=== PATIENT | female | born 1935 | race Caucasian/White ===

== ENCOUNTER 2016-07-12 22:23 | Inpatient (IN) | payer MEDICARE, BC ==
[~2016-07-12] VITALS: Ht 162.6 cm; Wt 116.1 kg
--- NOTE | ~2016-07-12 | ECH ---
Transthoracic Echocardiography Report (TTE) Demographics Patient Name EMMETT MURILLO Date of Study 07/15/2016 Patient Number [id number] Visit Number [id number] Date of 1935 Room Number 416 Accession Number [id number] Gender Female Age 80 year(s) Referring Raphael Figueroa Operations Consultant Drea Vargas [facility] Physician Physician Interpreting Maddy Tate [employer] Store Manager Physician Supervising Ordering Physician Gia Morel MD, MD/P Nurse Stress Photo Cartographer Conclusions Contractility Score Summary Normal Left Ventricular contractility was noted. Summary Technically adequate exam. The estimated left ventricular ejection fraction is 60%. Mild concentric left ventricular hypertrophy. Mildly dilated right ventricle with normal function. The left atrium is severely dilated by LA volume index measurement. Patient has known PFO by previous NEO bubble study. The right atrium is moderately dilated. Mild mitral regurgitation by color Doppler. Mild tricuspid regurgitation by color Doppler. There is mild pulmonary hypertension. The pulmonary pressure (RVSP) is 47 mmHg. The ascending aorta appears mildly dilated. The maximum diameter measures 3.6 cm. Recommendation The patient will be given the results of this study by the physician who ordered the exam. Procedure Type of Study TTE procedure:Echo Complete SF. Procedure Date Date: 07/15/2016 Start: 07:48 AM Technical Quality: Adequate visualization Indications:Atrial fibrillation and Hypertension. Additional Indications:Mental status changes Appropriate Use Criteria: 9 Height: 64 inches Weight: 252 pounds BSA: 2.16 m Rhythm: Within normal limits HR: 61 bpm BP: 152/81 mmHg M-Mode/2D Measurements LV Diastolic Dimension: 5.26 cm LV Systolic Dimension: 3.27 cm LV Septum Diastolic: 1.09 cm LV PW Diastolic: 1.09 cm AO Root Dimension: 3 cm Cardiac Output: 5.36 l/min LA Dimension: 4.43 cm Cardiac Index: 2.48 l/min*m RV Diastolic Dimension: 3.85 cm LA volume index: 51 ml/m LVOT: 1.99 cm LVOT VTI: 28.27 cm RV Base: 4.6 cm LV Stroke volume: 87.88 ml RV Mid: 3.1 cm LV Stroke volume index: 40.69 ml/m TAPSE: 3.1 cm TDI-S': 16 cm/s Doppler Measurements AV Peak Velocity: 1.7 m/s MV Peak E-Wave: 1.05 m/s AV Peak Gradient: 11.56 mmHg MV Peak A-Wave: 0.53 m/s AV Mean Gradient: 6.33 mmHg MV E/A Ratio: 1.96 LVOT Peak Velocity: 1.26 m/s MV P1/2t: 51.1 msec AV Area (Continuity):2.44 cm MV Deceleration Time: 165.8 msec TR Velocity:3.24 m/s MV Area (PHT): 4.31 cm TR Gradient:41.96 mmHg PV Peak Velocity: 0.93 m/s Estimated RAP:5 mmHg PV Peak Gradient: 3.45 mmHg Estimated RVSP: 47 mmHg Estimated PASP: 46.96 mmHg E' Septal Velocity: 0.11 m/s A' Septal Velocity: 0.05 m/s E' Lateral Velocity: 0.13 m/s A' Lateral Velocity: 0.06 m/s RA Area: 25.43 cm Findings Left Ventricle The left ventricle is normal in size . Mild concentric left ventricular hypertrophy. Diastolic assessment reveals normal relaxation. Right Ventricle Mildly dilated right ventricle with normal function. Left Atrium The left atrium is severely dilated by LA volume index measurement. Patient has known PFO by previous NEO bubble study. Right Atrium The right atrium is moderately dilated. Mitral Valve Mild mitral annular calcification. Mild mitral regurgitation by color Doppler. Aortic Valve The aortic valve is mildly sclerotic. Tricuspid Valve Normal tricuspid valve structure and function. Mild tricuspid regurgitation by color Doppler. There is mild pulmonary hypertension. The pulmonary pressure (RVSP) is 47 mmHg. Pulmonic Valve The pulmonic valve is not well visualized. Trivial pulmonic valve regurgitation by color Doppler. Pericardial Effusion No evidence of pericardial effusion. Miscellaneous The ascending aorta appears mildly dilated. The maximum diameter measures 3.6 cm. Pleural Effusion No evidence of pleural effusion. Contractility Score LV regional wall motion:(0-Non visualized 1-Normal 2-Hypokinesis 3-Akinesis 4-Dyskinesis 5-Aneurysm) Signature
[~2016-07-12 22:23] MED LIST: AMBIEN DPS5 MG PO; AMBIEN10 MG PO; ARIMIDEX DPS1 MG PO; BETAPACE120 MG PO; CALTRATE-600 D600 MG PO; CARDIZEM CD DP120 MG PO; CATAPRES-DPS0.1 MG PO; CATAPRES0.1 MG PO; COUMADIN2.5 MG PO; COUMADIN3 MG PO; CYMBALTA30 MG PO; DAILY MULTIPLE1 EAC1 PO; FEOSOL325 MG PO; LASIX20 MG PO; LORTAB 10-3251 EACH PO; MAVIK2 MG PO; METOPROLOL TART25 MG PO; MIRALAX17 GM PO; NEURONTIN300 MG PO; NOLVADEX DPS20 MG PO; TAMBOCOR100 MG PO; TOPAMAX DPS25 MG PO; TYLENOL325 MG PO; VITAMIN C250 MG PO; VITAMIN D50000 UNIT PO; WELLBUTRIN75 MG PO; ZANTAC DPS150 MG PO; ZYLOPRIM-DPS100 MG PO; ZYLOPRIM300 MG PO
--- NOTE | 2016-07-13 05:25 | ER ---
ADMIT: 07/12/2016 RM/LOC: ER [facility] MR#: [id number] [address] [facility] [address] [place], [place] [address] EMMETT MURILLO S [address] [place] [address] Emergency Room Report SEX: F AGE: 80 : 1935 DATE: 07/12/2016 CHIEF COMPLAINT: Delirium. HISTORY OF PRESENT ILLNESS: The patient is a 80-year-old female from [place], transferred by volunteer squad after witnessed a fall tonight. The patient denies fall or confusion, though it is apparent the patient is delirious and confused, unable to answer date, time of year, or specifics of her past medical history. The patient specifically denies any headache, fevers, chills, cough, nausea, vomiting, diarrhea, or urinary symptoms. PAST MEDICAL HISTORY: ALLERGIES: NEXIUM, FOSAMAX, NITROGLYCERIN, ISOSORBIDE. MEDICATIONS: Please see nurse's MAR. ILLNESSES: Atrial fib, anticoagulated, breast cancer, hypertension, obstructive sleep apnea, CPAP, DVT, gout, depression, migraines. OPERATIONS: Normal left heart cath x2, most recently in 2011, left total knee arthroplasty, bilateral carpal tunnel release, left breast biopsy, lumbar laminectomy with cage L4-L5. SOCIAL HISTORY: Nonsmoker, nondrinker, no illicit drugs. FAMILY HISTORY: Negative per chart review. REVIEW OF SYSTEMS: Unreliable due to delirium. PHYSICAL EXAMINATION: VITAL SIGNS: Temp 99.6, pulse 44, respirations 17, BP 135/60, SaO2 of 95% on room air. GENERAL: Nontoxic, non-diaphoretic without jaundice or icterus. HEENT: No evidence of trauma, epistaxis, rhinorrhea or otorrhea. NECK: Supple without meningismus. CHEST: Clear. Breath sounds equal. HEART: Bradycardic rate, regular rhythm without murmur, gallop, or edema. ABDOMEN: Obese, nontender, nondistended without mass or megaly. Bowel sounds hypoactive. BACK: Erect. No CVA tenderness. EXTREMITIES: No evidence of Homans sign, synovitis, or dermatitis. NEURO: EOMI. PERRLA. No evidence of drift, dysarthria, or ataxia. Gait normal. MENTAL STATUS: Alert, disoriented, without hallucinations or abnormal thought content. Obvious cognitive decline, unable to do serial sevens or remember immediate past events. LABORATORY AND IMAGING DATA: EKG shows sinus bradycardia with nonspecific interventricular conduction delay, replaced atrial fibrillation from February ADMIT: 07/12/2016 RM/LOC: [facility] MR#: [id number] [address] [place] [id number] [place] EMMETT S [address] [place] [address] Emergency Room Report SEX: F AGE: 80 : 1935 2015. Chest x-ray negative. Head CT and C-spine shows no acute findings. WBC 14.7, hemoglobin 11.9, CRP 6.99, glucose 127, creatinine 1.5, AST 116, ALT 141, flu screen negative. Lactic 2.5, troponin 0.016, INR 1.5. Procalcitonin 0.07. ABGs on 2.5 L; pH 7.38, pCO2 of 31.3, PO2 of 69. Urine negative. The patient was given 1 L of bolus, required more O2 for hypoxemia when she ambulated to the bathroom, suspect the patient has underlying hypoxemia contributory to delirium and escalating dementia. Discussed findings with Dr. Lim, who agreed and gave orders to nursing staff. DIAGNOSES: 1. Lactic acidosis, multifactorial. 2. Hypoxemia. 3. Bradycardia. 4. Elevated liver function. 5. Chronic kidney disease with acute injury on chronic kidney disease. 6. Frequent falls. RECOMMENDATION: Admit inpatient telemetry for Dr. Lim. ADMISSION/DISCHARGE CONDITION: Stable. Patient is a full code. Jayson Merino MD/ deepa JOB #: [id number] CC: Jayson Mernio MD, Attending Physician Rashaun Lim MD
--- NOTE | 2016-07-14 19:51 | HP ---
ADMIT: 07/13/2016 RM/LOC: 416 [facility] MR#: [id number] [address] [facility] [address] [place], [place] [address] EMMETT MURILLO S [address] [place] [address] History and Physical SEX: F AGE: 80 : 1935 HISTORY OF PRESENT ILLNESS: This is a very nice 80-year-old female, who is well known to my service. She does have a history of some tremors as well as hypertension, hyperlipidemia, atrial fibrillation, started on chronic anticoagulation. Most recently, she was slated to see the neurologist secondary to some perceived changes in her cognition by her . They have been correlating just a little bit. She does not feel that she does not have any change in her cognition; however, he feels that there are some slight changes in her mentation. Regardless, she had been in her usual state of health up until approximately . She was trying to do some painting. She is a bit confused actually today, unable to tell me exactly all of the history that happened but she was painting and she ran out of paint, then she went to the store and I store, she said yes and then she kind of from there. She has 2-3 word dyspnea. She is quite tired. Otherwise, she is not able to give me any clear history as she is short of breath. PAST MEDICAL HISTORY: 1. Obstructive sleep apnea, on CPAP. 2. History of DVT/PE. 3. Gout. 4. Migraines. 5. Hypertension. 6. Tremor. 7. Atrial fibrillation. 8. History of breast cancer. 9. Depression. MEDICATIONS: 1. Topiramate 50 mg at bedtime. 2. Ambien 5 mg at bedtime. 3. Allopurinol 400 mg daily. 4. Trandolapril 2 mg twice daily. 5. Clonidine 0.1 mg twice daily. 6. Bupropion 150 mg twice daily. 7. Duloxetine 60 mg daily. 8. Coumadin 2.5 mg daily. 9. Anastrozole 1 mg daily. 10.Lopressor 25 mg twice daily. 11.Zantac 150 mg daily. 12.Tambocor 100 mg twice daily. 13.Cardizem 120 mg daily. ALLERGIES: FOSAMAX, IMDUR, AND NITROGLYCERIN. FAMILY HISTORY: She does not remember her family history right now, is attempted to be reviewed other razors. No recurrent lung infections. SOCIAL HISTORY: She does not drink, does not smoke, does not do drugs. She does have a supportive family. ADMIT: 07/13/2016 RM/LOC: 416 [facility] MR#: [id number] [address] [address] EMMETT MURILLO [address] [place] [address] History and Physical SEX: F AGE: 80 : 1935 PHYSICAL EXAMINATION: VITAL SIGNS: Blood pressure 162/65, pulse 54, respiratory rate is 16, temperature is 99.2, 91% on O2. GENERAL: She is alert and oriented x3 but she is easily confused. She does have word searching. She has 2-3 word dyspnea. HEENT: Normocephalic and atraumatic. Extraocular movements intact area. No nasal discharge. Mucous membranes dry. NECK: Supple. She has thyromegaly. HEART: Bradycardic. LUNGS: Coarse and distant bilaterally with associated faint wheezing. ABDOMEN: Soft, nontender, and nondistended. EXTREMITIES: No clubbing, no cyanosis. She does have some chronic trace edema. NEUROLOGIC: No focal neurological findings. PSYCHIATRIC: She is frustrated that people feel that she is getting dementia. She is easily confused and she does have quite a bit of searching; however it is, unclear if this is truly due to cognitive issue or of she is short of breath and can only say 1-2 words to 3 words at a time. LABORATORY DATA: UA is without clear UTI white blood cells are 14.7, hemoglobin is 11.9, platelets are 243, ABG; pH 7.37, pCO2 is 31, PO2 of 69. Sodium 138, potassium 4.4 chloride 107, bicarb 20, BUN is 22, creatinine is 1.5, glucose 127, calcium is 8.5, phosphorus is 2.6, bilirubin 0.4. Total protein 7.8, albumin is 3.2, alkaline phosphatase 112, AST is 116, ALT is 141. Mag is 1.9. Troponin is 0.016. CRP is 6.99; influenza negative lactic acid is 2.5, procalcitonin 0.07, INR is 1.95. Repeat lactic acid is 1.5. Head CT no acute findings, blood cultures drawn and pending. Cervical spine CT showed valium elevated she had large thyroid but DJD of the spine chest x-ray done in the ER, there is mild cardiomegaly. I had ordered bilateral venous Dopplers, which are returned negative. ASSESSMENT AND PLAN: 1. Hypoxic respiratory failure. 2. Bronchitis. 3. Encephalopathy. 4. Acute renal failure. 5. Chronic kidney disease. 6. Elevated LFTs. 7. History of deep-vein thrombosis/pulmonary embolism, on chronic anticoagulation. 8. Atrial fibrillation. 9. Obstructive sleep apnea, on CPAP. 10.Tremors. 11.Major depressive disorder. At this time, I will go ahead and get an abdominal ultrasound of her elevated LFTs. They have already completed bilateral venous Dopplers. I cannot do a CTA at this time secondary to [id number] renal failure. We will continue gentle IV fluids. I do the reason I am going to give her place her ADMIT: 07/13/2016 RM/LOC: 416 [facility] MR#: [id number] [address] [address] EMMETT MURILLO [address] [place] [address] History and Physical SEX: F AGE: 80 : 1935 on Levaquin and I will initiate Solu-Medrol 125 mg IV x1 followed by oral prednisone. Also get a respiratory viral panel and she has not picked up a potential viral syndrome such as RSV. Viral syndrome would be consistent with her multisystem complaints under elevated LFTs. Regular DuoNeb now as she is quite short of breath, dating back from ultrasound I will get ABG now. We will ask our her neurologist to come see her as well. I am going to go ahead and hold off on her ARB at this time I am not going to change any of her psychotropic regimen at this time. I would like to fluid resuscitate her improve her hypoxia and she does still continue to have cognitive concerns at this and me will go ahead and start adjusting her regimen. She has no meningeal signs. No photophobia or anything like that at all. We will go and will adjust pain accordingly. Discussed the plan with the patient. Discussed agreement was given had no further requests. Rashaun Lim MD/ deepa JOB #: [id number] CC: Rashaun Lim, Attending Physician Rashaun Lim, Family Physician
--- NOTE | 2016-07-19 12:36 | CO ---
ADMIT: 07/13/2016 RM/LOC: 416 [id number] [id number] 26[address] [facility] [address] [place], [place] [address] EMMETT MURILLO S [address] [place] [address] Consultation SEX: F AGE: 80 : 1935 DATE OF CONSULTATION: 07/14/2016 ATTENDING PHYSICIAN: Rashaun Lim CONSULTING PHYSICIAN: Melissa Nielsen MD REASON FOR CONSULT: Encephalopathy. Thank you, Dr. Lim, for the consult and involving me in this patient's care. HISTORY OF PRESENT ILLNESS: Ms. Murillo is a 80-year-old woman, who lives in [place], who presented to the ER yesterday after her witnessed a fall. The patient apparently has been confused since last 1-2 days and unable to answer anything. Per her , she is usually very good at writing and otherwise oriented but since last 1-2 days, there was change in her mental status. She has history of chronic headaches since February [address] Howell for the same. Per the patient, she was diagnosed with migraine headaches. At present, the patient is completely oriented x3 and is answering all questions appropriately. She also had a good three-word recall. She denied any fevers at home, any recent travel or sick contacts. She lives at home with her and son and has a pet at home. She denies eating anything out of ordinary lately. PAST MEDICAL HISTORY: 1. Obstructive sleep apnea, on CPAP. 2. History of DVT and PE. 3. Migraines. 4. Gout. 5. Hypertension. 6. Tremor. 7. Atrial fibrillation. 8. History of breast cancer. 9. Depression. 10.History of breast cancer. ALLERGIES: TO FOSAMAX, IMDUR, AND NITROGLYCERIN. FAMILY HISTORY: Significant for breast cancer in her mother. SOCIAL HISTORY: She denies any smoking, alcohol, or recreational drug use. CURRENT MEDICATIONS: 1. Arimidex. 2. Cardizem. 3. Catapres. 4. Deltasone. 5. Lopressor. 6. Seroquel. ADMIT: 07/13/2016 RM/LOC: 416 [facility] MR#: [id number] 26[address] [facility] [address] [place], [place] [address] EMMETT MURILLO S [address] [place] [address] Consultation SEX: F AGE: 80 : 1935 7. Tambocor. 8. Zyloprim. 9. Amoxicillin 2 g every 4 hours. 10.Rocephin 2 g q.12 hours. 11.Vancomycin 1 g once daily. REVIEW OF SYSTEMS: Ten-point review of systems negative except as mentioned in the HPI. PHYSICAL EXAMINATION: VITAL SIGNS: Current temperature 96.8, heart rate 55, respirations 18, blood pressure 152/81, 94% on 2 L. GENERAL: No acute distress. HEENT. Head, normocephalic and atraumatic. Extraocular movements intact. LYMPH: No palpable anterior/posterior cervical or supraclavicular lymphadenopathy. NECK: Supple. CHEST: Decreased breath sounds bilaterally. CARDIOVASCULAR: S1 and S2 heard. Regular rate and rhythm. ABDOMEN: Soft, nontender, and nondistended. Active bowel sounds. EXTREMITIES: 1+ edema, bilateral lower extremities. NEUROLOGICAL: Awake, alert, and oriented x3. Good three-word recall. She was able to draw a clock but unable to put the time properly. PSYCH: Normal affect. Memory intact. SKIN: No rash noted on exposed skin. DATA: Reveal chest x-ray today shows bilateral interstitial opacities. CBC shows white count of 14.7, hemoglobin 11, platelets 229. BMP shows creatinine of 1.3. AST 65, ALT 113. INR is 2.2 today. Abdominal ultrasound showed probably fatty infiltration of the liver. The urinalysis only had 6 wbc's in the urine and culture is growing more than 100,000 colonies of Gram-positive cocci, probable Enterococcus species. CT head showed no acute abnormality. Blood cultures have been no growth to-date. Respiratory viral panel was negative. ASSESSMENT AND PLAN: 1. Acute confusion. It is less likely meningitis or encephalitis. At present, the patient is totally appropriate. There is component of delirium, may be secondary to underlying infection, likely atypical pneumonia.May be also component of dementia and she might need dementia workup as an outpatient. MRI brain is pending and LP has been ordered. Agree doing a lumbar puncture given her chronic headaches. I will narrow ADMIT: 07/13/2016 RM/LOC: 416 [facility] MR#: [id number] [address] [address] EMMETT MURILLO [address] [place] [address] Consultation SEX: F AGE: 80 : 1935 her antibiotics down and stop the ceftriaxone and ampicillin at this time. Continue with vancomycin for now, given the Enterococcus in the urine. However, she only had few wbc's in the urine. 2. Hypoxia/interstitial opacities. I doubt atypical pneumonia. I will check urine Legionella antigen and put on azithromycin 500 mg IV once daily for 5 days. I will also get a CT chest without contrast. 3. Elevated liver function tests, unclear etiology. We will check hepatitis panel, could be from secondary systemic infection. I will also check an echocardiogram. 4. Chronic headaches. Sees Dr. Howell, lumbar puncture pending. Thank you for the consult and I will continue to follow the patient. Melissa Nielsen MD/ deepa JOB #: [id number] CC: Rashaun Lim, Attending Physician Rashaun Lim, Family Physician
--- NOTE | 2016-07-22 08:22 | DS ---
ADMIT: 07/13/2016 RM/LOC: 307 [facility] MR#: [id number] ACC#: [id number] [address] [place], [place] [address] EMMETT MURILLO [address] [place] [address] Discharge Summary SEX: F AGE: 80 : 1935 ADMISSION DATE: 07/13/2016 DISCHARGE DATE: 07/15/2016 TIME OF : July 15, 2016 at 10:53 a.m. FINAL DIAGNOSES: 1. Encephalopathy. 2. Gram-positive cocci in urine. 3. Acute renal failure. 4. Hypoxia. 5. Major depressive disorder. 6. Right lobular pneumonia. REASON FOR ADMISSION: Please see history and physical dictated; however briefly, she is admitted for acute renal failure, encephalopathy, as well as a degree of hypoxemia. HOSPITAL COURSE: She is admitted to the service of [facility] under the care of myself, Rashaun Lim MD. I do place her on broad-spectrum antibiotic therapy as well as respiratory support. The patient does have continued encephalopathy. We did obtain a consultation with Infectious Disease. Planning for a reversal of her INR and lumbar puncture. The patient was sitting in bed. The night prior to her , she did have some bradycardia. Her metoprolol was held. The patient was reportedly sitting in a recliner, had asked her son to take her to the bathroom. He helped to the bathroom. She developed severe bradycardia and pulseless electrical activity. At that time, a code was initiated. Please see the code notes for details; however, the patient did have multiple episodes of pulseless electrical activity with regain of a pulse. She did ultimately develop a seizure. After discussion with the family and unresponsiveness to our resuscitative efforts, we did cease the code and patient does pass away at 10:53 a.m. I was at the bedside with the family to answer any questions and give my condolences. Rashaun Lim MD/ ana JOB #: [id number] CC: Rashaun Lim MD, Attending Physician Rashaun Lim MD, Family Physician
--- NOTE | 2016-08-14 08:03 | ER ---
ADMIT: 07/13/2016 RM/LOC: 307 [facility] MR#: [id number] [address] [address] [place] S [address] [place] [address] Emergency Room Report SEX: F AGE: 80 : 1935 DATE: 07/12/2016 Dr. Castañeda and Dr. Martini ran this code. Donnell Jerome MD/ modyaritza JOB #: [id number] CC: Rashaun Lim MD, Attending Physician Rashaun Lim MD, Family Physician
== END 2016-07-15 10:53 | disposition expired | DRG 70 ==
LOC: ER 22:23 → 4PCU 07-13 01:10 → 3ICU 07-15 10:45
PROVIDERS: ADMIT Internal Medicine
DX: G93.40 Encephalopathy, unspecified (principal); J18.9 Pneumonia, unspecified organism; J96.91 Respiratory failure, unspecified with hypoxia; N17.9 Acute kidney failure, unspecified; I48.91 Unspecified atrial fibrillation; E87.2 Acidosis; R00.1 Bradycardia, unspecified; M47.812 Spondylosis without myelopathy or radiculopathy, cervical region; E78.5 Hyperlipidemia, unspecified; F32.9 Major depressive disorder, single episode, unspecified; G47.33 Obstructive sleep apnea (adult) (pediatric); M10.9 Gout, unspecified; I12.9 Hypertensive chronic kidney disease with stage 1 through stage 4 chronic kidney disease, or unspecified chronic kidney disease; N18.9 Chronic kidney disease, unspecified; Z85.3 Personal history of malignant neoplasm of breast; Z79.01 Long term (current) use of anticoagulants; Z96.652 Presence of left artificial knee joint; Z86.718 Personal history of other venous thrombosis and embolism; Z91.81 History of falling; Z86.711 Personal history of pulmonary embolism